=== PATIENT | male | born 1990 | race African-American/Black ===

== ENCOUNTER 2020-02-01 08:35 | Emergency (ER) | payer MEDICAID ==
[~2020-02-01] VITALS: Ht 172.7 cm; Wt 61.2 kg
[2020-02-01 08:49] VITALS: BP 136/87
== END 2020-02-01 09:32 | disposition home or self-care (01) ==
LOC: ER 08:35
DX: J03.90 Acute tonsillitis, unspecified (principal); F17.210 Nicotine dependence, cigarettes, uncomplicated